=== PATIENT | male | born 1970 | race Hispanic/Latino ===

== ENCOUNTER 2019-09-24 | Emergency (ER) | payer SELFPAY ==
[~2019-09-24] MED LIST: AMOXICILLIN500 M2 PO; FLEXERIL5 M1 PO; METFORMIN500 MG PO; NAPROSYN500 MG PO; NAPROXEN DR500 MG PO; NO HOME MEDS; RANITIDINE150 M1 OR; TORADOL PO
[2019-09-24 20:22] LABS: HEMATOCRIT 36.8 % (39.0-50.0); HEMOGLOBIN 13.2 g/dl (14.0-18.0); IMMATURE GRANULOCYTES 0.2 % (0.0-5.0); MEAN CELL VOLUME 83.8 fL CALC (80.0-100.0); MEAN CORPUSCULAR HGB 30.1 pG CALC (26.0-32.0); MEAN CORPUSCULAR HGB CONC 35.9 g/L CALC (32.0-36.0); NEUT# 2.05 thou/uL (1.82-7.42); RED BLOOD COUNT 4.39 mill/uL (4.70-6.10); RED CELL DISTRI WIDTH 12.5 % (11.5-15.5)
[2019-09-24 20:23] LABS: URINE BILIRUBIN - DIPSTICK NEGATIVE (NEGATIVE); URINE BLOOD DIPSTICK NEGATIVE (NEGATIVE); URINE COLOR YELLOW; URINE GLUCOSE - DIPSTICK NEGATIVE (NEGATIVE); URINE KETONE NEGATIVE (NEGATIVE); URINE LEUK ESTERASE NEGATIVE (NEGATIVE); URINE NITRITE - DIPSTICK NEGATIVE (Negative); URINE PROTEIN - DIPSTICK NEGATIVE (NEG-TRACE)
[2019-09-24 20:33] LABS: ALBUMIN 4.9 g/dL (3.2-5.0); ALKALINE PHOSPHATASE 113 u/l (38-126); BUN 4 mg/dL (9-20); BUN/CREATININE RATIO 9 (12-20 (CALC)); CARBON DIOXIDE 24 mmol/l (22-30); CPK 205 u/l (52-200); CREATININE 0.4 mg/dL (0.7-1.3); ETHYL ALCOHOL 176 mg/dl (0-30); GFR > 60 ML/MIN (>=60 (CALC)); GFR FOR AFR.AMER. > 60 ML/MIN (>=60 (CALC)); MAGNESIUM 1.7 mg/dL (1.6-2.3); POTASSIUM 3.8 mmol/l (3.5-5.1); TOTAL PROTEIN 9.3 g/dL (6.3-8.2)
[2019-09-24 20:38] LABS: ANION GAP 21 (6-22 (CALC)); BILIRUBIN, TOTAL 1.8 mg/dL (0.0-1.4); CHLORIDE 86 mmol/l (95-108); SGOT/AST 209 u/l (17-59); SODIUM 127 mmol/l (137-146)
[2019-09-24 20:44] LABS: MYOGLOBIN 36 ng/mL (0 - 121)
[2019-09-24] MEDS ORDERED: LISINOPRIL10 MG PO (22:26)
== END 2019-09-24 23:27 | disposition home or self-care (01) | DRG 897 ==
PROVIDERS: Family Medicine
DX: F10.129 Alcohol abuse with intoxication, unspecified (principal); I10 Essential (primary) hypertension; E11.9 Type 2 diabetes mellitus without complications; Z79.84 Long term (current) use of oral hypoglycemic drugs
CPT/HCPCS: Q9967

== ENCOUNTER 2019-12-14 | Emergency (ER) | payer SELFPAY ==
[~2019-12-14] MED LIST changes: +LISINOPRIL10 MG PO
[2019-12-14] MEDS ORDERED: METFORMIN500 M2 PO (13:57)
[2019-12-14] MEDS ORDERED: AMOX/K CLAV875 M1 PO (14:06)
[2019-12-14] MEDS ORDERED: MUPIROCIN21 TOP (14:07)
== END 2019-12-14 15:15 | disposition home or self-care (01) | DRG 605 ==
DX: S91.352A Open bite, left foot, initial encounter (principal); I10 Essential (primary) hypertension; E11.9 Type 2 diabetes mellitus without complications; W54.0XXA Bitten by dog, initial encounter; Z79.84 Long term (current) use of oral hypoglycemic drugs

== ENCOUNTER 2020-01-06 | Emergency (ER) | payer SELFPAY ==
[~2020-01-06] MED LIST changes: +AMOX/K CLAV875 M1 PO; +METFORMIN500 M2 PO; +MUPIROCIN21 TOP
[2020-01-06] MEDS ORDERED: PENICILLN VK500 M1 PO (21:34)
== END 2020-01-06 21:42 | disposition home or self-care (01) | DRG 153 ==
DX: J02.0 Streptococcal pharyngitis (principal); I10 Essential (primary) hypertension; E11.9 Type 2 diabetes mellitus without complications; Z79.84 Long term (current) use of oral hypoglycemic drugs; Z20.828 Contact with and (suspected) exposure to other viral communicable diseases

== ENCOUNTER 2020-01-07 15:10 | Observation (INO) | payer SELFPAY ==
[~2020-01-07] VITALS: Ht 162.6 cm; Wt 61.9 kg
[~2020-01-07 15:10] MED LIST changes: +PENICILLN VK500 M1 PO
--- NOTE | 2020-01-07 15:10 | NUR ---
PT TO ROOM WITH A STEADY GAIT FOR BEDSIDE TRIAGE.
[2020-01-07 15:49] LABS: HEMATOCRIT 37.1 % (39.0-50.0); HEMOGLOBIN 12.7 g/dl (14.0-18.0); IMMATURE GRANULOCYTES 0.2 % (0.0-5.0); MEAN CELL VOLUME 84.3 fL CALC (80.0-100.0); MEAN CORPUSCULAR HGB 28.9 pG CALC (26.0-32.0); MEAN CORPUSCULAR HGB CONC 34.2 g/dL CAL (32.0-36.0); NEUT# 3.87 thou/uL (1.82-7.42); RED BLOOD COUNT 4.4 mill/uL (4.70-6.10); RED CELL DISTRI WIDTH 12.5 % (11.5-15.5)
[2020-01-07 16:03] LABS: ALBUMIN 5.2 g/dL (3.2-5.0); ALKALINE PHOSPHATASE 113 u/l (38-126); ANION GAP 19 (6-22 (CALC)); BUN 3 mg/dL (9-20); BUN/CREATININE RATIO 8 (12-20 (CALC)); CARBON DIOXIDE 24 mmol/l (22-30); CHLORIDE 86 mmol/l (95-108); CREATININE 0.4 mg/dL (0.7-1.3); GFR > 60 ML/MIN (>=60 (CALC)); GFR FOR AFR.AMER. > 60 ML/MIN (>=60 (CALC)); LIPASE 176 u/l (23-300); POTASSIUM 4.3 mmol/l (3.5-5.1); SGOT/AST 101 u/l (17-59); SODIUM 125 mmol/l (137-146); TOTAL PROTEIN 9.4 g/dL (6.3-8.2)
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
--- NOTE | 2020-01-07 17:05 | NUR ---
TRANSPORTED TO [facility] ON TELE IN NO DISTRESS
--- NOTE | 2020-01-07 17:20 | NUR ---
PT RESTING WITH EYES CLOSED IN NO DISTRESS. VSS.
[2020-01-07 17:28] LABS: URINE BILIRUBIN - DIPSTICK NEGATIVE (NEGATIVE); URINE BLOOD DIPSTICK NEGATIVE (NEGATIVE); URINE COLOR YELLOW; URINE GLUCOSE - DIPSTICK >=1000 mg/dL (NEGATIVE); URINE KETONE NEGATIVE (NEGATIVE); URINE LEUK ESTERASE NEGATIVE (NEGATIVE); URINE NITRITE - DIPSTICK NEGATIVE (Negative); URINE PROTEIN - DIPSTICK NEGATIVE (NEG-TRACE); URINE SPECIFIC GRAVITY <=1.005; URINE UROBILINOGEN - DIPSTICK 0.2 E.U./dL (0.2)
--- NOTE | 2020-01-07 18:15 | NUR ---
RECEIVED REPORT FROM BRIAN SCOTT WILL BE A BIT BEFORE BRINGING PT TO THE UNIT.
--- NOTE | 2020-01-07 18:21 | NUR ---
CALLED REPORT TO AGUSTINA PATEL
--- NOTE | 2020-01-07 18:22 | NUR ---
PT UPDATED ON POC AND ADMISSION. PT AGREEABLE. USED URINAL AT BEDSIDE, CLEAR YELLOW URINE.
[2020-01-07 18:55] VITALS: BP 159/82
--- NOTE | 2020-01-07 19:05 | NUR ---
PT TRANSPORTED TO [place] ON TELE IN NO DISTRESS VIA WC.
--- NOTE | 2020-01-07 21:11 | NUR ---
PT ARRIVED VIA ACCOMPANIED BY KAYLENE SCOTT @[id number]. PT LAYING IN BED. A&O X3. PT C/O OF SOME ABD PAIN AND NAUSEA BUT NO ACTIVE VOMITING EPISODES. EXPLAINED TO PT THAT MD WOULD BE NOTIFIED TO OBTAIN ORDERS FOR NAUSEA MEDICATION AND PAIN MEDICATION. ORIENTED PT TO ROOM. ASSESSMENT COMPLETED. DISCUSSED POC. CALL LIGHT IN REACH. CONTINUE TO MONITOR.
[2020-01-07 23:50] VITALS: BP 140/86
--- NOTE | 2020-01-08 00:12 | NUR ---
PT SLEEPING IN BED. RESP EVEN AND UNLABORED. CONTINUE TO MONITOR
[2020-01-08 04:15] VITALS: BP 129/79
--- NOTE | 2020-01-08 04:50 | NUR ---
PT SLEEPING IN BED, RESP EVEN AND UNLABORED. AWAKENED TO COMPLETE VENIPUNCTURE. PT TOLERATED WELL. CONTINUE TO MONITOR
[2020-01-08 05:39] LABS: ANION GAP 14 (6-22 (CALC)); BUN 9 mg/dL (9-20); BUN/CREATININE RATIO 17 (12-20 (CALC)); CARBON DIOXIDE 24 mmol/l (22-30); CHLORIDE 96 mmol/l (95-108); CREATININE 0.5 mg/dL (0.7-1.3); GFR > 60 ML/MIN (>=60 (CALC)); GFR FOR AFR.AMER. > 60 ML/MIN (>=60 (CALC)); POTASSIUM 4.2 mmol/l (3.5-5.1); SODIUM 130 mmol/l (137-146)
[2020-01-08 08:15] VITALS: BP 131/75
--- NOTE | 2020-01-08 08:15 | NUR ---
ASSESSMENT IS COMPLETED: IV SITE IS FREE FROM REDNESS OR EDEMA. HR IS REG,PULSES ARE STRONG ABD IS SOFT WITH ACTIVE BS. BREATH SOUNDS ARE CLEAR,BILATERALLY. TELE MONITOR IN PLACE.,
[2020-01-08 10:50] VITALS: BP 119/63
--- NOTE | 2020-01-08 12:00 | NUR ---
PT IS RELAXING IN BED WITH NO DISTRESS NOTED. IV SITE IS FREE FROM REDNESS ORE OLYA
--- NOTE | 2020-01-08 16:07 | NUR ---
IV SITE DISCONTINUED CATHETER INTACT. NO REDNESS OR EDEMA. DISCHARGE INSTRUCTIONS GIVEN AND VERBALIZED UNDERSTANDING. SUGAR GRINDER APPROVED FOR A CAB RIDE HOME/. Discharge instructions given. Patient verbalizes understanding of same. Discharged in stable condition via Wheelchair to Home with family. All belongings sent with pt.
--- NOTE | 2020-01-08 16:11 | NUR ---
I AND O OF 847 FOR IV FLUIDS
--- NOTE | 2020-01-18 09:30 | NUR ---
Notified of Covid results (Negative) by journal clerk Naseem Cordova. Patient states he is still not feeling well. Patient states he attempted to see PCP but they could not see him unitl 02/10/20 and that the [facility] stated they could not see him either. Advised patient to return to ED. Patient verbalized understanding.
== END 2020-01-08 16:08 | disposition home or self-care (01) | DRG 641 ==
LOC: ED 15:10 → ED-I 16:50 → ED 17:14 → ED-I 17:15 → MS2 17:42
PROVIDERS: Family Medicine; ADMIT Internal Medicine; ATTEND Internal Medicine
DX: E87.1 Hypo-osmolality and hyponatremia (principal); E11.9 Type 2 diabetes mellitus without complications; I10 Essential (primary) hypertension; K76.0 Fatty (change of) liver, not elsewhere classified; Z72.89 Other problems related to lifestyle; Z79.84 Long term (current) use of oral hypoglycemic drugs; Z20.828 Contact with and (suspected) exposure to other viral communicable diseases
CPT/HCPCS: G0378; Q9967

== ENCOUNTER 2020-01-18 | Emergency (ER) | payer SELFPAY ==
[2020-01-18 13:11] LABS: URINE BILIRUBIN - DIPSTICK NEGATIVE (NEGATIVE); URINE BLOOD DIPSTICK NEGATIVE (NEGATIVE); URINE CLARITY CLEAR; URINE COLOR YELLOW; URINE GLUCOSE - DIPSTICK >=1000 mg/dL (NEGATIVE); URINE KETONE NEGATIVE (NEGATIVE); URINE LEUK ESTERASE NEGATIVE (Negative); URINE NITRITE - DIPSTICK NEGATIVE (Negative); URINE PH 5.5 (4.5-8.0); URINE PROTEIN - DIPSTICK NEGATIVE (NEG-TRACE); URINE SPECIFIC GRAVITY <=1.005; URINE UROBILINOGEN - DIPSTICK 0.2 E.U./dL (0.2)
[2020-01-18 13:21] LABS: HEMATOCRIT 38.6 % (39.0-50.0); HEMOGLOBIN 12.9 g/dl (14.0-18.0); IMMATURE GRANULOCYTES 0.2 % (0.0-5.0); MEAN CELL VOLUME 85.2 fL CALC (80.0-100.0); MEAN CORPUSCULAR HGB 28.5 pG CALC (26.0-32.0); MEAN CORPUSCULAR HGB CONC 33.4 g/dL CAL (32.0-36.0); NEUT# 3.21 thou/uL (1.82-7.42); RED BLOOD COUNT 4.53 mill/uL (4.70-6.10); RED CELL DISTRI WIDTH 12.9 % (11.5-15.5)
[2020-01-18 13:39] LABS: ALBUMIN 4.5 g/dL (3.2-5.0); ALKALINE PHOSPHATASE 151 u/l (38-126); ANION GAP 17 (6-22 (CALC)); BUN 16 mg/dL (9-20); BUN/CREATININE RATIO 22 (12-20 (CALC)); C-REACTIVE PROTEIN < 0.5 mg/dL (0-0.9); CARBON DIOXIDE 21 mmol/l (22-30); CHLORIDE 101 mmol/l (95-108); CREATININE 0.7 mg/dL (0.7-1.3); GFR > 60 ML/MIN (>=60 (CALC)); GFR FOR AFR.AMER. > 60 ML/MIN (>=60 (CALC)); POTASSIUM 3.9 mmol/l (3.5-5.1); SGOT/AST 90 u/l (17-59); SODIUM 134 mmol/l (137-146); TOTAL PROTEIN 8.3 g/dL (6.3-8.2)
[2020-01-18 13:42] LABS: BILIRUBIN, TOTAL 0.7 mg/dL (0.0-1.4)
[2020-01-18] MEDS ORDERED: MOTRIN400 MG/TAB PO (14:01)
[2020-01-18] MEDS ORDERED: CYCLOBENZAPR5 MG PO (14:02)
[2020-01-18] MEDS ORDERED: KEFLEX500 M1 PO (15:41)
--- NOTE | 2020-01-20 09:19 | NUR ---
Rachel Sumner (endodontist) notified patient of Covidresults (Negative). Advised patient to follow up with PCP or return to ED for urgent needs.
== END 2020-01-18 16:20 | disposition home or self-care (01) | DRG 153 ==
DX: J02.0 Streptococcal pharyngitis (principal); E11.9 Type 2 diabetes mellitus without complications; I10 Essential (primary) hypertension; Z79.84 Long term (current) use of oral hypoglycemic drugs; Z20.828 Contact with and (suspected) exposure to other viral communicable diseases
CPT/HCPCS: J0561

== ENCOUNTER 2020-01-29 | Emergency (ER) | payer SELFPAY ==
[~2020-01-29] MED LIST changes: +CYCLOBENZAPR5 MG PO; +KEFLEX500 M1 PO; +MOTRIN400 MG/TAB PO
[2020-01-29 09:15] LABS: HEMATOCRIT 40.7 % (39.0-50.0); HEMOGLOBIN 13.8 g/dl (14.0-18.0); IMMATURE GRANULOCYTES 0.5 % (0.0-5.0); MEAN CELL VOLUME 82.4 fL CALC (80.0-100.0); MEAN CORPUSCULAR HGB 27.9 pG CALC (26.0-32.0); MEAN CORPUSCULAR HGB CONC 33.9 g/dL CAL (32.0-36.0); NEUT# 5.06 thou/uL (1.82-7.42); RED BLOOD COUNT 4.94 mill/uL (4.70-6.10); RED CELL DISTRI WIDTH 12.4 % (11.5-15.5)
[2020-01-29 09:25] LABS: AMYLASE 100 u/l (30-110); ETHYL ALCOHOL 0 mg/dl (0-30); LIPASE 272 u/l (23-300); MAGNESIUM 1.7 mg/dL (1.6-2.3)
[2020-01-29] MEDS ORDERED: HYDROCHLOROT12.5 MG PO (09:49)
[2020-01-29 09:55] LABS: ALBUMIN 4.7 g/dL (3.2-5.0); ALKALINE PHOSPHATASE 153 u/l (38-126); ANION GAP 19 (6-22 (CALC)); BILIRUBIN, TOTAL 0.7 mg/dL (0.0-1.4); BUN 26 mg/dL (9-20); BUN/CREATININE RATIO 31 (12-20 (CALC)); CARBON DIOXIDE 25 mmol/l (22-30); CHLORIDE 92 mmol/l (95-108); CREATININE 0.9 mg/dL (0.7-1.3); GFR > 60 ML/MIN (>=60 (CALC)); GFR FOR AFR.AMER. > 60 ML/MIN (>=60 (CALC)); POTASSIUM 4.4 mmol/l (3.5-5.1); SGOT/AST 60 u/l (17-59); SODIUM 131 mmol/l (137-146); TOTAL PROTEIN 8.6 g/dL (6.3-8.2)
[2020-01-29 09:55] LABS: URINE BILIRUBIN - DIPSTICK NEGATIVE (NEGATIVE); URINE BLOOD DIPSTICK NEGATIVE (NEGATIVE); URINE COLOR YELLOW; URINE GLUCOSE - DIPSTICK >=1000 mg/dL (NEGATIVE); URINE KETONE NEGATIVE (NEGATIVE); URINE LEUK ESTERASE NEGATIVE (NEGATIVE); URINE NITRITE - DIPSTICK NEGATIVE (Negative); URINE PH 5.5 (4.5-8.0); URINE PROTEIN - DIPSTICK NEGATIVE (NEG-TRACE); URINE SPECIFIC GRAVITY 1.015; URINE UROBILINOGEN - DIPSTICK 0.2 E.U./dL (0.2)
[2020-01-29 09:57] LABS: ACT PARTIAL THROMBO TIME 25.5 SECONDS (20.0-32.5); PROTHROMBIN TIME 10.6 SECONDS (9.0-12.5)
[2020-01-29 10:02] LABS: BARBITURATES NEGATIVE (NEGATIVE); COCAINE NEGATIVE (NEGATIVE); METHADONE NEGATIVE (NEGATIVE); OXCYCODONE NEGATIVE (NEGATIVE); TETRAHYDROCANNABIONOL NEGATIVE (NEGATIVE); TRICYLIC ANTIDEPRESSANTS NEGATIVE (NEGATIVE)
[2020-01-29] MEDS ORDERED: ACETAMIN500 M2 PO (10:05)
[2020-01-29] MEDS ORDERED: TRAMADOL HYDROC50 MG PO (12:00)
--- NOTE | 2020-02-01 11:33 | NUR ---
Notified patient of Covid results (Negative) via Naseem Wright (onion topper). Advised patient to follow up with PCP or retuen to ED with urgent issues. Patient verbalized understanding.
== END 2020-01-29 12:32 | disposition home or self-care (01) | DRG 639 ==
DX: E11.65 Type 2 diabetes mellitus with hyperglycemia (principal); E11.40 Type 2 diabetes mellitus with diabetic neuropathy, unspecified; I10 Essential (primary) hypertension; Z79.84 Long term (current) use of oral hypoglycemic drugs; Z91.14 Patient's other noncompliance with medication regimen; Z20.828 Contact with and (suspected) exposure to other viral communicable diseases

== ENCOUNTER 2020-04-18 17:30 | Emergency (ER) | payer SELFPAY ==
[~2020-04-18] VITALS: Ht 162.6 cm; Wt 58.0 kg
[~2020-04-18 17:30] MED LIST changes: +ACETAMIN500 M2 PO; +HYDROCHLOROT12.5 MG PO; +TRAMADOL HYDROC50 MG PO
[2020-04-18 19:14] LABS: IMMATURE GRANULOCYTES 0.3 % (0.0-5.0); MEAN CELL VOLUME 83.1 fL CALC (80.0-100.0); MEAN CORPUSCULAR HGB 27.1 pG CALC (26.0-32.0); MEAN CORPUSCULAR HGB CONC 32.6 g/dL CAL (32.0-36.0); NEUT# 4.24 thou/uL (1.82-7.42); RED BLOOD COUNT 4.09 mill/uL (4.70-6.10); RED CELL DISTRI WIDTH 13.7 % (11.5-15.5)
[2020-04-18 19:19] LABS: HEMOGLOBIN 11.1 g/dl (14.0-18.0)
[2020-04-18] MEDS ORDERED: GLIMEPIRIDE2 MG PO (19:25)
[2020-04-18 19:36] LABS: ALBUMIN 4.7 g/dL (3.2-5.0); ALKALINE PHOSPHATASE 110 u/l (38-126); ANION GAP 17 (6-22 (CALC)); BILIRUBIN, TOTAL 0.8 mg/dL (0.0-1.4); BUN 32 mg/dL (9-20); BUN/CREATININE RATIO 32 (12-20 (CALC)); CARBON DIOXIDE 22 mmol/l (22-30); CHLORIDE 99 mmol/l (95-108); GFR > 60 ML/MIN (>=60 (CALC)); GFR FOR AFR.AMER. > 60 ML/MIN (>=60 (CALC)); LIPASE 633 u/l (23-300); POTASSIUM 4.6 mmol/l (3.5-5.1); SGOT/AST 26 u/l (17-59); SODIUM 133 mmol/l (137-146)
[2020-04-18 21:52] LABS: URINE BILIRUBIN - DIPSTICK NEGATIVE (NEGATIVE); URINE BLOOD DIPSTICK NEGATIVE (NEGATIVE); URINE COLOR YELLOW; URINE GLUCOSE - DIPSTICK NEGATIVE (NEGATIVE); URINE KETONE NEGATIVE (NEGATIVE); URINE LEUK ESTERASE NEGATIVE (NEGATIVE); URINE NITRITE - DIPSTICK NEGATIVE (Negative); URINE PH 5.5 (4.5-8.0); URINE PROTEIN - DIPSTICK NEGATIVE (NEG-TRACE); URINE UROBILINOGEN - DIPSTICK 0.2 E.U./dL (0.2)
[2020-04-18] MEDS ORDERED: ONDANSETRON4 MG PO ×2 (22:41)
[2020-04-18] MEDS ORDERED: ULTRAM50 M1 PO (22:41)
[2020-04-18 23:54] VITALS: BP 113/74
== END 2020-04-19 00:21 | disposition home or self-care (01) | DRG 434 ==
LOC: ED 17:30
PROVIDERS: Family Medicine
DX: K70.30 Alcoholic cirrhosis of liver without ascites (principal); E11.65 Type 2 diabetes mellitus with hyperglycemia; F10.10 Alcohol abuse, uncomplicated; I10 Essential (primary) hypertension; Z79.84 Long term (current) use of oral hypoglycemic drugs; Z20.828 Contact with and (suspected) exposure to other viral communicable diseases
CPT/HCPCS: Q9967

== ENCOUNTER 2020-04-28 15:54 | Emergency (ER) | payer SELFPAY ==
[~2020-04-28] VITALS: Ht 162.6 cm; Wt 65.0 kg
[~2020-04-28 15:54] MED LIST changes: +GLIMEPIRIDE2 MG PO; +ONDANSETRON4 MG PO; +ULTRAM50 M1 PO
[2020-04-28] MEDS ORDERED: IBUPROFEN600 MG PO (17:29)
[2020-04-28 17:37] VITALS: BP 135/71
== END 2020-04-28 17:40 | disposition home or self-care (01) | DRG 605 ==
LOC: ED 15:54
DX: S60.222A Contusion of left hand, initial encounter (principal); I10 Essential (primary) hypertension; E11.9 Type 2 diabetes mellitus without complications; W01.0XXA Fall on same level from slipping, tripping and stumbling without subsequent striking against object, initial encounter; Y92.009 Unspecified place in unspecified non-institutional (private) residence as the place of occurrence of the external cause; Z79.84 Long term (current) use of oral hypoglycemic drugs

== ENCOUNTER 2020-07-28 09:06 | Emergency (ER) | payer SELFPAY ==
[~2020-07-28] VITALS: Ht 162.6 cm; Wt 61.3 kg
[~2020-07-28 09:06] MED LIST changes: +IBUPROFEN600 MG PO
[2020-07-28] MEDS ORDERED: LISINOP/HCTZ1 TAB PO (09:28)
[2020-07-28] MEDS ORDERED: FIORICET PO (09:30)
[2020-07-28] MEDS ORDERED: AMITRIPTYLIN10 MG PO (09:31)
[2020-07-28 09:44] LABS: HEMATOCRIT 33.2 % (39.0-50.0); HEMOGLOBIN 10.8 g/dl (14.0-18.0); IMMATURE GRANULOCYTES 0.5 % (0.0-5.0); MEAN CELL VOLUME 80.2 fL CALC (80.0-100.0); MEAN CORPUSCULAR HGB 26.1 pG CALC (26.0-32.0); MEAN CORPUSCULAR HGB CONC 32.5 g/dL CAL (32.0-36.0); NEUT# 2.67 thou/uL (1.82-7.42); RED BLOOD COUNT 4.14 mill/uL (4.70-6.10); RED CELL DISTRI WIDTH 14.9 % (11.5-15.5)
[2020-07-28 09:56] LABS: ALBUMIN 4.9 g/dL (3.2-5.0); ALKALINE PHOSPHATASE 124 u/l (38-126); AMYLASE 95 u/l (30-110); BILIRUBIN, TOTAL 0.9 mg/dL (0.0-1.4); BUN 7 mg/dL (9-20); BUN/CREATININE RATIO 13 (12-20 (CALC)); CARBON DIOXIDE 24 mmol/l (22-30); CHLORIDE 93 mmol/l (95-108); CREATININE 0.6 mg/dL (0.7-1.3); GFR > 60 ML/MIN (>=60 (CALC)); GFR FOR AFR.AMER. > 60 ML/MIN (>=60 (CALC)); SODIUM 132 mmol/l (137-146); TOTAL PROTEIN 8.3 g/dL (6.3-8.2)
[2020-07-28 09:58] LABS: ANION GAP 19 (6-22 (CALC)); POTASSIUM 4.2 mmol/l (3.5-5.1)
[2020-07-28 10:08] LABS: MYOGLOBIN 40 ng/mL (0 - 121)
[2020-07-28 10:09] LABS: SGOT/AST 51 u/l (17-59)
[2020-07-28 10:34] LABS: URINE BILIRUBIN - DIPSTICK NEGATIVE (NEGATIVE); URINE BLOOD DIPSTICK NEGATIVE (NEGATIVE); URINE COLOR YELLOW; URINE GLUCOSE - DIPSTICK >=1000 mg/dL (NEGATIVE); URINE KETONE NEGATIVE (NEGATIVE); URINE LEUK ESTERASE NEGATIVE (NEGATIVE); URINE NITRITE - DIPSTICK NEGATIVE (Negative); URINE PROTEIN - DIPSTICK NEGATIVE (NEG-TRACE); URINE SPECIFIC GRAVITY <=1.005; URINE UROBILINOGEN - DIPSTICK 0.2 E.U./dL (0.2)
[2020-07-28] MEDS ORDERED: PREVACID30 M3 PO (14:21)
[2020-07-28] MEDS ORDERED: ONDANSETRON4 MG PO (14:21)
[2020-07-28] MEDS ORDERED: NAPROXEN500 MG PO (14:38)
[2020-07-28 15:14] VITALS: BP 164/79
== END 2020-07-28 15:14 | disposition home or self-care (01) | DRG 392 ==
LOC: ED 09:06
PROVIDERS: Emergency Medicine
DX: R10.13 Epigastric pain (principal); R10.33 Periumbilical pain; E11.65 Type 2 diabetes mellitus with hyperglycemia; K70.30 Alcoholic cirrhosis of liver without ascites; F10.10 Alcohol abuse, uncomplicated; I10 Essential (primary) hypertension; Z79.84 Long term (current) use of oral hypoglycemic drugs; Z20.828 Contact with and (suspected) exposure to other viral communicable diseases
CPT/HCPCS: Q9967

== ENCOUNTER 2020-09-10 18:36 | Emergency (ER) | payer SELFPAY ==
[~2020-09-10] VITALS: Ht 154.9 cm; Wt 63.6 kg
[~2020-09-10 18:36] MED LIST changes: +AMITRIPTYLIN10 MG PO; +FIORICET PO; +LISINOP/HCTZ1 TAB PO; +NAPROXEN500 MG PO; +PREVACID30 M3 PO
[2020-09-10 19:23] LABS: HEMATOCRIT 34.3 % (39.0-50.0); HEMOGLOBIN 11.2 g/dl (14.0-18.0); IMMATURE GRANULOCYTES 0.2 % (0.0-5.0); MEAN CELL VOLUME 77.6 fL CALC (80.0-100.0); MEAN CORPUSCULAR HGB 25.3 pG CALC (26.0-32.0); MEAN CORPUSCULAR HGB CONC 32.7 g/dL CAL (32.0-36.0); NEUT# 2.27 thou/uL (1.82-7.42); RED BLOOD COUNT 4.42 mill/uL (4.70-6.10); RED CELL DISTRI WIDTH 13.8 % (11.5-15.5)
[2020-09-10 19:39] LABS: ALBUMIN 4.9 g/dL (3.2-5.0); ALKALINE PHOSPHATASE 104 u/l (38-126); ANION GAP 19 (6-22 (CALC)); BILIRUBIN, TOTAL 0.8 mg/dL (0.0-1.4); BUN 6 mg/dL (9-20); BUN/CREATININE RATIO 11 (12-20 (CALC)); CARBON DIOXIDE 23 mmol/l (22-30); CHLORIDE 92 mmol/l (95-108); CREATININE 0.5 mg/dL (0.7-1.3); GFR > 60 ML/MIN (>=60 (CALC)); GFR FOR AFR.AMER. > 60 ML/MIN (>=60 (CALC)); POTASSIUM 3.8 mmol/l (3.5-5.1); SGOT/AST 71 u/l (17-59); SODIUM 130 mmol/l (137-146); TOTAL PROTEIN 8.4 g/dL (6.3-8.2)
[2020-09-10 20:02] LABS: URINE BILIRUBIN - DIPSTICK NEGATIVE (NEGATIVE); URINE BLOOD DIPSTICK NEGATIVE (NEGATIVE); URINE COLOR YELLOW; URINE GLUCOSE - DIPSTICK >=1000 mg/dL (NEGATIVE); URINE KETONE NEGATIVE (NEGATIVE); URINE LEUK ESTERASE NEGATIVE (NEGATIVE); URINE NITRITE - DIPSTICK NEGATIVE (Negative); URINE PH 6.5 (4.5-8.0); URINE PROTEIN - DIPSTICK NEGATIVE (NEG-TRACE); URINE SPECIFIC GRAVITY <=1.005; URINE UROBILINOGEN - DIPSTICK 0.2 E.U./dL (0.2)
[2020-09-10] MEDS ORDERED: PHENERGAN25 MG/TAB PO (21:06)
[2020-09-10] MEDS ORDERED: VOLTAREN75 MG PO (21:06)
[2020-09-10 22:06] VITALS: BP 147/86
== END 2020-09-10 22:06 | disposition home or self-care (01) | DRG 866 ==
LOC: ED 18:36
PROVIDERS: Emergency Medicine
DX: B34.9 Viral infection, unspecified (principal); M25.50 Pain in unspecified joint; E11.65 Type 2 diabetes mellitus with hyperglycemia; I10 Essential (primary) hypertension; Z79.84 Long term (current) use of oral hypoglycemic drugs; Z20.828 Contact with and (suspected) exposure to other viral communicable diseases

== ENCOUNTER 2020-10-05 07:32 | Emergency (ER) | payer SELFPAY ==
[~2020-10-05] VITALS: Ht 154.9 cm; Wt 70.0 kg
[~2020-10-05 07:32] MED LIST changes: +PHENERGAN25 MG/TAB PO; +VOLTAREN75 MG PO
[2020-10-05 08:26] LABS: HEMATOCRIT 30.1 % (39.0-50.0); HEMOGLOBIN 10.1 g/dl (14.0-18.0); IMMATURE GRANULOCYTES 0.5 % (0.0-5.0); MEAN CORPUSCULAR HGB 25.8 pG CALC (26.0-32.0); MEAN CORPUSCULAR HGB CONC 33.6 g/dL CAL (32.0-36.0); NEUT# 2.31 thou/uL (1.82-7.42); RED BLOOD COUNT 3.91 mill/uL (4.70-6.10); RED CELL DISTRI WIDTH 14.6 % (11.5-15.5)
[2020-10-05 08:48] LABS: ALBUMIN 4.7 g/dL (3.2-5.0); ALKALINE PHOSPHATASE 105 u/l (38-126); ANION GAP 18 (6-22 (CALC)); BILIRUBIN, TOTAL 0.7 mg/dL (0.0-1.4); BUN 5 mg/dL (9-20); BUN/CREATININE RATIO 9 (12-20 (CALC)); CARBON DIOXIDE 26 mmol/l (22-30); CHLORIDE 91 mmol/l (95-108); CREATININE 0.5 mg/dL (0.7-1.3); GFR > 60 ML/MIN (>=60 (CALC)); GFR FOR AFR.AMER. > 60 ML/MIN (>=60 (CALC)); LIPASE 242 u/l (23-300); POTASSIUM 3.9 mmol/l (3.5-5.1); SGOT/AST 65 u/l (17-59); SODIUM 131 mmol/l (137-146); TOTAL PROTEIN 8.4 g/dL (6.3-8.2)
[2020-10-05 09:48] LABS: URINE BILIRUBIN - DIPSTICK NEGATIVE (NEGATIVE); URINE BLOOD DIPSTICK TRACE-LYSED (NEGATIVE); URINE COLOR YELLOW; URINE GLUCOSE - DIPSTICK >=1000 mg/dL (NEGATIVE); URINE KETONE NEGATIVE (NEGATIVE); URINE LEUK ESTERASE NEGATIVE (NEGATIVE); URINE NITRITE - DIPSTICK NEGATIVE (Negative); URINE PROTEIN - DIPSTICK NEGATIVE (NEG-TRACE); URINE SPECIFIC GRAVITY <=1.005; URINE UROBILINOGEN - DIPSTICK 0.2 E.U./dL (0.2)
[2020-10-05] MEDS ORDERED: ZOFRAN4 MG/TAB PO (10:43)
[2020-10-05 11:13] VITALS: BP 147/88
== END 2020-10-05 11:13 | disposition home or self-care (01) | DRG 639 ==
LOC: ED 07:32
PROVIDERS: Family Medicine
DX: E11.65 Type 2 diabetes mellitus with hyperglycemia (principal); I10 Essential (primary) hypertension; Z79.84 Long term (current) use of oral hypoglycemic drugs; Z20.822 Contact with and (suspected) exposure to COVID-19
CPT/HCPCS: Q9967

== ENCOUNTER 2020-11-09 20:06 | Emergency (ER) | payer SELFPAY ==
[~2020-11-09] VITALS: Ht 154.9 cm; Wt 60.0 kg
[~2020-11-09 20:06] MED LIST changes: +ZOFRAN4 MG/TAB PO
[2020-11-09 21:02] LABS: HEMATOCRIT 32.7 % (39.0-50.0); IMMATURE GRANULOCYTES 0.8 % (0.0-5.0); MEAN CORPUSCULAR HGB 25.6 pG CALC (26.0-32.0); MEAN CORPUSCULAR HGB CONC 33.6 g/dL CAL (32.0-36.0); NEUT# 3.76 thou/uL (1.82-7.42); RED BLOOD COUNT 4.3 mill/uL (4.70-6.10); RED CELL DISTRI WIDTH 15.7 % (11.5-15.5)
[2020-11-09 21:03] LABS: URINE BILIRUBIN - DIPSTICK NEGATIVE (NEGATIVE); URINE BLOOD DIPSTICK NEGATIVE (NEGATIVE); URINE COLOR YELLOW; URINE GLUCOSE - DIPSTICK >=1000 mg/dL (NEGATIVE); URINE KETONE NEGATIVE (NEGATIVE); URINE LEUK ESTERASE NEGATIVE (NEGATIVE); URINE NITRITE - DIPSTICK NEGATIVE (Negative); URINE PROTEIN - DIPSTICK NEGATIVE (NEG-TRACE); URINE SPECIFIC GRAVITY <=1.005; URINE UROBILINOGEN - DIPSTICK 0.2 E.U./dL (0.2)
[2020-11-09 21:17] VITALS: BP 109/85
[2020-11-09 21:23] LABS: ALBUMIN 4.7 g/dL (3.2-5.0); ALKALINE PHOSPHATASE 114 u/l (38-126); ANION GAP 20 (6-22 (CALC)); BILIRUBIN, TOTAL 0.6 mg/dL (0.0-1.4); BUN 4 mg/dL (9-20); BUN/CREATININE RATIO 9 (12-20 (CALC)); CARBON DIOXIDE 21 mmol/l (22-30); CHLORIDE 89 mmol/l (95-108); CREATININE 0.5 mg/dL (0.7-1.3); ETHYL ALCOHOL 213 mg/dl (0-30); GFR > 60 ML/MIN (>=60 (CALC)); GFR FOR AFR.AMER. > 60 ML/MIN (>=60 (CALC)); LIPASE 142 u/l (23-300); POTASSIUM 3.8 mmol/l (3.5-5.1); SGOT/AST 35 u/l (17-59); SODIUM 126 mmol/l (137-146); TOTAL PROTEIN 8.2 g/dL (6.3-8.2)
[2020-11-09 21:24] LABS: ACT PARTIAL THROMBO TIME 24.1 SECONDS (20.0-32.5); INTERNATIONAL NORMALIZED RATIO 1.1 RATIO (0.7-1.3); PROTHROMBIN TIME 10.5 SECONDS (9.0-12.5)
[2020-11-09] MEDS ORDERED: PROTONIX40 M2 PO (23:19)
[2020-11-09] MEDS ORDERED: ZOFRAN4 MG/TAB PO (23:19)
== END 2020-11-09 23:30 | disposition home or self-care (01) | DRG 74 ==
LOC: ED 20:06
DX: E11.42 Type 2 diabetes mellitus with diabetic polyneuropathy (principal); E87.1 Hypo-osmolality and hyponatremia; E11.65 Type 2 diabetes mellitus with hyperglycemia; F10.10 Alcohol abuse, uncomplicated; I10 Essential (primary) hypertension; K70.30 Alcoholic cirrhosis of liver without ascites; Z86.16 Personal history of COVID-19; Z79.84 Long term (current) use of oral hypoglycemic drugs; Z20.822 Contact with and (suspected) exposure to COVID-19

== ENCOUNTER 2020-11-19 17:29 | Emergency (ER) | payer SELFPAY ==
[~2020-11-19] VITALS: Ht 154.9 cm; Wt 65.0 kg
[~2020-11-19 17:29] MED LIST changes: +PROTONIX40 M2 PO
[2020-11-19 20:28] LABS: HEMATOCRIT 31.5 % (39.0-50.0); HEMOGLOBIN 10.1 g/dl (14.0-18.0); IMMATURE GRANULOCYTES 0.5 % (0.0-5.0); MEAN CELL VOLUME 78.4 fL CALC (80.0-100.0); MEAN CORPUSCULAR HGB 25.1 pG CALC (26.0-32.0); MEAN CORPUSCULAR HGB CONC 32.1 g/dL CAL (32.0-36.0); NEUT# 2.1 thou/uL (1.82-7.42); RED BLOOD COUNT 4.02 mill/uL (4.70-6.10); RED CELL DISTRI WIDTH 17.3 % (11.5-15.5); URINE BILIRUBIN - DIPSTICK NEGATIVE (NEGATIVE); URINE BLOOD DIPSTICK NEGATIVE (NEGATIVE); URINE COLOR YELLOW; URINE GLUCOSE - DIPSTICK >=1000 mg/dL (NEGATIVE); URINE KETONE NEGATIVE (NEGATIVE); URINE LEUK ESTERASE NEGATIVE (NEGATIVE); URINE NITRITE - DIPSTICK NEGATIVE (Negative); URINE PROTEIN - DIPSTICK NEGATIVE (NEG-TRACE); URINE SPECIFIC GRAVITY <=1.005; URINE UROBILINOGEN - DIPSTICK 0.2 E.U./dL (0.2)
[2020-11-19 21:04] LABS: ALBUMIN 4.8 g/dL (3.2-5.0); ALKALINE PHOSPHATASE 144 u/l (38-126); AMYLASE 84 u/l (30-110); ANION GAP 19 (6-22 (CALC)); BILIRUBIN, TOTAL 0.7 mg/dL (0.0-1.4); BUN 7 mg/dL (9-20); BUN/CREATININE RATIO 13 (12-20 (CALC)); CARBON DIOXIDE 25 mmol/l (22-30); CHLORIDE 95 mmol/l (95-108); CREATININE 0.5 mg/dL (0.7-1.3); ETHYL ALCOHOL 162 mg/dl (0-30); GFR > 60 ML/MIN (>=60 (CALC)); GFR FOR AFR.AMER. > 60 ML/MIN (>=60 (CALC)); LIPASE 183 u/l (23-300); SGOT/AST 39 u/l (17-59); TOTAL PROTEIN 8.1 g/dL (6.3-8.2)
[2020-11-19 21:05] LABS: SODIUM 135 mmol/l (137-146)
[2020-11-19] MEDS ORDERED: PEPCID20 MG PO (22:33)
[2020-11-19] MEDS ORDERED: METFORMIN HCL500 M1 PO (22:35)
[2020-11-19 23:00] VITALS: BP 178/87
[2020-11-20] MEDS ORDERED: ULTRAM50 MG PO (18:22)
== END 2020-11-19 23:00 | disposition home or self-care (01) | DRG 392 ==
LOC: ED 17:29
PROVIDERS: Family Medicine
DX: R10.13 Epigastric pain (principal); K70.30 Alcoholic cirrhosis of liver without ascites; F10.129 Alcohol abuse with intoxication, unspecified; E11.9 Type 2 diabetes mellitus without complications; I10 Essential (primary) hypertension; Z86.16 Personal history of COVID-19; Z79.84 Long term (current) use of oral hypoglycemic drugs
CPT/HCPCS: Q9967

== ENCOUNTER 2020-11-20 10:40 | Emergency (ER) | payer SELFPAY ==
[~2020-11-20] VITALS: Ht 154.9 cm; Wt 60.0 kg
[~2020-11-20 10:40] MED LIST changes: +METFORMIN HCL500 M1 PO; +PEPCID20 MG PO
[2020-11-20 11:50] LABS: HEMATOCRIT 33.8 % (39.0-50.0); HEMOGLOBIN 10.7 g/dl (14.0-18.0); IMMATURE GRANULOCYTES 0.3 % (0.0-5.0); MEAN CELL VOLUME 79.7 fL CALC (80.0-100.0); MEAN CORPUSCULAR HGB 25.2 pG CALC (26.0-32.0); MEAN CORPUSCULAR HGB CONC 31.7 g/dL CAL (32.0-36.0); NEUT# 1.94 thou/uL (1.82-7.42); RED BLOOD COUNT 4.24 mill/uL (4.70-6.10); RED CELL DISTRI WIDTH 17.5 % (11.5-15.5)
[2020-11-20 12:10] LABS: ALBUMIN 4.6 g/dL (3.2-5.0); ALKALINE PHOSPHATASE 120 u/l (38-126); ANION GAP 13 (6-22 (CALC)); BUN 9 mg/dL (9-20); BUN/CREATININE RATIO 16 (12-20 (CALC)); CARBON DIOXIDE 28 mmol/l (22-30); CHLORIDE 94 mmol/l (95-108); CREATININE 0.6 mg/dL (0.7-1.3); ETHYL ALCOHOL 0 mg/dl (0-30); GFR > 60 ML/MIN (>=60 (CALC)); GFR FOR AFR.AMER. > 60 ML/MIN (>=60 (CALC)); LIPASE 111 u/l (23-300); POTASSIUM 4.3 mmol/l (3.5-5.1); SGOT/AST 36 u/l (17-59); SODIUM 132 mmol/l (137-146); TOTAL PROTEIN 7.9 g/dL (6.3-8.2)
[2020-11-20 12:12] LABS: BILIRUBIN, TOTAL 1.2 mg/dL (0.0-1.4)
[2020-11-20] MEDS ORDERED: ULTRAM50 MG PO (18:22)
[2020-11-20 18:52] VITALS: BP 177/82
== END 2020-11-20 18:52 | disposition home or self-care (01) | DRG 552 ==
LOC: ED 10:40
DX: M54.2 Cervicalgia (principal); M54.6 Pain in thoracic spine; G89.29 Other chronic pain; E11.65 Type 2 diabetes mellitus with hyperglycemia; I10 Essential (primary) hypertension; Z79.84 Long term (current) use of oral hypoglycemic drugs; Z86.16 Personal history of COVID-19; Z20.822 Contact with and (suspected) exposure to COVID-19
CPT/HCPCS: Q9967

== ENCOUNTER 2021-05-03 16:07 | Emergency (ER) | payer SELFPAY ==
[~2021-05-03 16:07] MED LIST changes: +ULTRAM50 MG PO
[2021-05-03] MEDS ORDERED: HYDROCO/APAP1 TA9 PO (18:24)
[2021-05-03 18:27] VITALS: BP 112/70
== END 2021-05-03 19:05 | disposition home or self-care (01) | DRG 563 ==
LOC: ED 16:07
PROC: 2W3QX1Z Immobilization of Right Lower Leg using Splint (ICD-10-PCS; principal; 2021-05-03)
DX: S82.831A Other fracture of upper and lower end of right fibula, initial encounter for closed fracture (principal); S82.51XA Displaced fracture of medial malleolus of right tibia, initial encounter for closed fracture; I10 Essential (primary) hypertension; E11.9 Type 2 diabetes mellitus without complications; Z86.16 Personal history of COVID-19; V18.0XXA Pedal cycle driver injured in noncollision transport accident in nontraffic accident, initial encounter; Y93.55 Activity, bike riding; Z79.84 Long term (current) use of oral hypoglycemic drugs

== ENCOUNTER 2021-05-14 11:07 | Observation (INO) | payer SELFPAY ==
[~2021-05-14] VITALS: Ht 154.9 cm; Wt 60.0 kg
[~2021-05-14 11:07] MED LIST changes: +HYDROCO/APAP1 TA9 PO
--- NOTE | 2021-05-14 11:25 | NUR ---
PT TO ER BED 5 FOR TRIAGE AT THIS TIME.
[2021-05-14 11:53] LABS: HEMATOCRIT 34.5 % (39.0-50.0); HEMOGLOBIN 12.1 g/dl (14.0-18.0); IMMATURE GRANULOCYTES 0.3 % (0.0-5.0); MEAN CORPUSCULAR HGB 29.7 pG CALC (26.0-32.0); MEAN CORPUSCULAR HGB CONC 35.1 g/dL CAL (32.0-36.0); NEUT# 1.83 thou/uL (1.82-7.42); RED BLOOD COUNT 4.08 mill/uL (4.70-6.10); RED CELL DISTRI WIDTH 13.2 % (11.5-15.5)
[2021-05-14 11:58] LABS: MEAN CELL VOLUME 84.6 fL CALC (80.0-100.0)
[2021-05-14 12:05] LABS: ALBUMIN 4.3 g/dL (3.2-5.0); ALKALINE PHOSPHATASE 122 u/l (38-126); AMYLASE 82 u/l (30-110); ANION GAP 18 (6-22 (CALC)); BILIRUBIN, TOTAL 0.9 mg/dL (0.0-1.4); BUN 13 mg/dL (9-20); BUN/CREATININE RATIO 18 (12-20 (CALC)); CARBON DIOXIDE 23 mmol/l (22-30); CHLORIDE 97 mmol/l (95-108); CREATININE 0.7 mg/dL (0.7-1.3); ETHYL ALCOHOL 229 mg/dl (0-30); GFR > 60 ML/MIN (>=60 (CALC)); GFR FOR AFR.AMER. > 60 ML/MIN (>=60 (CALC)); LIPASE 140 u/l (23-300); POTASSIUM 3.8 mmol/l (3.5-5.1); SODIUM 134 mmol/l (137-146); TOTAL PROTEIN 7.9 g/dL (6.3-8.2)
[2021-05-14 12:06] LABS: SGOT/AST 214 u/l (17-59)
--- NOTE | 2021-05-14 12:15 | NUR ---
PT TO ER BED 14 FOR HIGHER LEVEL OF CARE AT THIS TIME. REPORT GIVEN TO JERAMY SCOTT AND CARE RELINQUISHED.
[2021-05-14 12:16] LABS: URINE BILIRUBIN - DIPSTICK NEGATIVE (NEGATIVE); URINE BLOOD DIPSTICK NEGATIVE (NEGATIVE); URINE COLOR YELLOW; URINE GLUCOSE - DIPSTICK NEGATIVE (NEGATIVE); URINE KETONE NEGATIVE (NEGATIVE); URINE LEUK ESTERASE NEGATIVE (NEGATIVE); URINE PROTEIN - DIPSTICK NEGATIVE (NEG-TRACE); URINE UROBILINOGEN - DIPSTICK 0.2 E.U./dL (0.2)
[2021-05-14 12:21] LABS: URINE NITRITE - DIPSTICK NEGATIVE (Negative)
--- NOTE | 2021-05-14 14:00 | NUR ---
LACTIC REDRAWN BY LAB
--- NOTE | 2021-05-14 15:52 | NUR ---
PATIENT MEDICATED PER ORDER, NO FURTHER NEEDS AT THIS TIME. LIGHTS DIMMED FOR PATIENT COMFORT.
--- NOTE | 2021-05-14 19:53 | NUR ---
PT C/O ARTHUR OLIVAREZ INFORMED OF PT REQUEST FOR MED FOR HEADACHE SPEECH IS CLESR NO FOCAL DEFICITS,GCS IS 15
--- NOTE | 2021-05-14 20:30 | NUR ---
PT WAS MEDICATED AND IS NOW ASLEEP APPEARS COMFORTABLE
--- NOTE | 2021-05-14 22:30 | NUR ---
PT IS ASLEEP W/P/D SKIN SR NO ECTOPY
--- NOTE | 2021-05-15 03:27 | NUR ---
ASLEEP W/D SKI N SR NO ECTOPY
--- NOTE | 2021-05-15 05:30 | NUR ---
RECIEVED REPORT FOR REST OF SHIFT. PT RESTING.
[2021-05-15 06:23] LABS: HEMATOCRIT 34.9 % (39.0-50.0); HEMOGLOBIN 12.3 g/dl (14.0-18.0); IMMATURE GRANULOCYTES 0.3 % (0.0-5.0); MEAN CELL VOLUME 84.5 fL CALC (80.0-100.0); MEAN CORPUSCULAR HGB 29.8 pG CALC (26.0-32.0); MEAN CORPUSCULAR HGB CONC 35.2 g/dL CAL (32.0-36.0); NEUT# 2.13 thou/uL (1.82-7.42); RED BLOOD COUNT 4.13 mill/uL (4.70-6.10); RED CELL DISTRI WIDTH 13.1 % (11.5-15.5)
[2021-05-15 06:24] LABS: INTERNATIONAL NORMALIZED RATIO 1.1 RATIO (0.7-1.3); PROTHROMBIN TIME 11.3 SECONDS (9.0-12.5)
[2021-05-15 06:31] LABS: ALKALINE PHOSPHATASE 142 u/l (38-126); BUN 6 mg/dL (9-20); BUN/CREATININE RATIO 9 (12-20 (CALC)); CHLORIDE 96 mmol/l (95-108); CREATININE 0.7 mg/dL (0.7-1.3); GFR > 60 ML/MIN (>=60 (CALC)); GFR FOR AFR.AMER. > 60 ML/MIN (>=60 (CALC)); POTASSIUM 3.7 mmol/l (3.5-5.1); SGOT/AST 153 u/l (17-59); SODIUM 132 mmol/l (137-146); TOTAL PROTEIN 7.3 g/dL (6.3-8.2)
[2021-05-15 06:54] LABS: ANION GAP 11 (6-22 (CALC)); BILIRUBIN, TOTAL 1.9 mg/dL (0.0-1.4); CARBON DIOXIDE 29 mmol/l (22-30)
--- NOTE | 2021-05-15 07:13 | NUR ---
PT RESTING. VSS. C/O HEADACHE. ANTIBIOTIC WAS HUNG. REPORT TO SONIA BANKS.
--- NOTE | 2021-05-15 07:45 | NUR ---
PT UP TO BATHROOM WITH STEADY GAIT. ITEMS WITHIN REACH. VITALS UPDATED. NO CONCERNS VOICED.
--- NOTE | 2021-05-15 11:00 | NUR ---
PT RESTING, NO COMPLAINTS AT THIS TIME, CALL LIGHT IN REACH. ASSESSMENT COMPLETED CHARTED
[2021-05-15] MEDS ORDERED: GLIPIZIDE5 M2 PO (12:04)
[2021-05-15] MEDS ORDERED: SIMVASTATIN20 M1 PO (12:04)
[2021-05-15] MEDS ORDERED: LEVOTHYROXIN50 MC1 PO (12:05)
[2021-05-15] MEDS ORDERED: BAC 50-325-40 M1 TAB PO (12:09)
--- NOTE | 2021-05-15 15:43 | NUR ---
PT RESTING IN BED WITH NO COMPLAINTS
--- NOTE | 2021-05-15 16:07 | NUR ---
GAVE REPORT TO NICCI SCOTT, PT TRANSPORTED VIA WHEELCHAIR TO FLOOR, ALL BELONGINGS WITH PT
[2021-05-15 16:28] VITALS: BP 140/76
--- NOTE | 2021-05-15 16:28 | NUR ---
PT IN ALERT AND ORIENTED. VITALS AND ASSESSMENT DONE. S1 AND S2 HEARD UPON ASCULTATION. BOWELS ACTIVE IN ALL 4 QUADRANTS. SKIN DRY AND WARM. CAST ON THE RIGHT FOOT. PT REPORTS NO PAIN. PT HAS A RIGHT LAC, IV PATENT AND HEALTHY. PT IS ON TELEMETRY. PT IS [place] SPEAKING. NO NEEDS WANTED AT THIS TIME. CALL LIGHT WITHIN REACH.
--- NOTE | 2021-05-15 18:35 | NUR ---
REPORT RECIVED FROM Damon RUEDA.
[2021-05-15 19:00] VITALS: BP 128/81
--- NOTE | 2021-05-15 20:15 | NUR ---
PATIENT ASSEMENT COMPLETED AT THIS TIME. ALERT AND ORIENED X3. CAPE VERDEAN PREFERED. CLEAR LUNG SOUNDS. NORMAL HEART SOUNDS. ACTIVE BOWEL SOUNDS IN ALL 4 QUADRANTS. LAST REPORTED BOWEL MOVEMENT TODAY 05/15/21. PATIENT HAS #20 IN THE LEFT AC IVF AT 100ML/HR. SOFT CAST NOTED ON RIGHT FOOT. DENIES ANY PAIN AT THIS TIME. PLAN OF CARE REVIEWED AND REORIENTED TO CALL LIGHT, REINFORCED TO CALL IF ASSITANCE IS NEEDED, NON COMPLAIANT WITH CALL LIGHT, BED ALARM IN PLACE.
[2021-05-16 04:00] VITALS: BP 130/83
--- NOTE | 2021-05-16 05:08 | NUR ---
PATIENT UP TO RESTROOM AT THIS TIME.
[2021-05-16 06:41] LABS: HEMATOCRIT 32.9 % (39.0-50.0); HEMOGLOBIN 11.2 g/dl (14.0-18.0); MEAN CELL VOLUME 86.6 fL CALC (80.0-100.0); MEAN CORPUSCULAR HGB 29.5 pG CALC (26.0-32.0); RED BLOOD COUNT 3.8 mill/uL (4.70-6.10); RED CELL DISTRI WIDTH 13.5 % (11.5-15.5)
[2021-05-16 06:58] LABS: ANION GAP 9 (6-22 (CALC)); BUN 5 mg/dL (9-20); BUN/CREATININE RATIO 6 (12-20 (CALC)); CARBON DIOXIDE 31 mmol/l (22-30); CHLORIDE 100 mmol/l (95-108); CREATININE 0.7 mg/dL (0.7-1.3); GFR > 60 ML/MIN (>=60 (CALC)); GFR FOR AFR.AMER. > 60 ML/MIN (>=60 (CALC)); MAGNESIUM 1.4 mg/dL (1.6-2.3); POTASSIUM 3.4 mmol/l (3.5-5.1); SODIUM 136 mmol/l (137-146)
[2021-05-16 07:20] VITALS: BP 124/83
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
--- NOTE | 2021-05-16 10:07 | NUR ---
DR. ALMANZA AND Monster YATES AT BEDSIDE DISCUSSING POC.
--- NOTE | 2021-05-16 12:00 | NUR ---
PT IN BED. NO DISTRESS NOTED. CALL LIGHT WITHIN REACH.
--- NOTE | 2021-05-16 13:06 | NUR ---
CALL PHARMACY REGARDING MISSING ZOSYN MEDICATION. KARAN TOLD ME TO USE ON OF THE ZOSYNS AVAILABLE AND SHE WILL REPLACE IT.
[2021-05-16] MEDS ORDERED: KEFLEX500 MG PO (13:33)
[2021-05-16 14:56] VITALS: BP 121/79
--- NOTE | 2021-05-16 17:40 | NUR ---
Discharge instructions given. Patient verbalizes understanding of same. Discharged in stable condition via Wheelchair to Home with staff. All belongings sent with pt.
== END 2021-05-16 18:00 | disposition home or self-care (01) | DRG 313 ==
LOC: ED 11:07 → ED-I 15:29 → ED 15:38 → ED-I 15:39 → MS2 05-15 15:30
PROVIDERS: Nurse Practitioner; ADMIT Hospitalist; ATTEND Hospitalist
DX: R07.9 Chest pain, unspecified (principal); E87.1 Hypo-osmolality and hyponatremia; M54.2 Cervicalgia; R51.9 Headache, unspecified; M54.9 Dorsalgia, unspecified; G89.29 Other chronic pain; R10.10 Upper abdominal pain, unspecified; R50.9 Fever, unspecified; E11.65 Type 2 diabetes mellitus with hyperglycemia; F10.129 Alcohol abuse with intoxication, unspecified; K70.30 Alcoholic cirrhosis of liver without ascites; I10 Essential (primary) hypertension; Y90.7 Blood alcohol level of 200-239 mg/100 ml; Z79.84 Long term (current) use of oral hypoglycemic drugs; Z86.16 Personal history of COVID-19; Z20.822 Contact with and (suspected) exposure to COVID-19
CPT/HCPCS: G0378; J3475; Q9967; S0164

== ENCOUNTER 2021-07-16 13:01 | Observation (INO) | payer SELFPAY ==
[~2021-07-16] VITALS: Ht 154.9 cm; Wt 60.8 kg
[~2021-07-16 13:01] MED LIST changes: +BAC 50-325-40 M1 TAB PO; +GLIPIZIDE5 M2 PO; +KEFLEX500 MG PO; +LEVOTHYROXIN50 MC1 PO; +SIMVASTATIN20 M1 PO
[2021-07-16 13:54] LABS: HEMATOCRIT 36.7 % (39.0-50.0); HEMOGLOBIN 12.5 g/dl (14.0-18.0); IMMATURE GRANULOCYTES 0.3 % (0.0-5.0); MEAN CORPUSCULAR HGB 27.1 pG CALC (26.0-32.0); MEAN CORPUSCULAR HGB CONC 34.1 g/dL CAL (32.0-36.0); NEUT# 1.66 thou/uL (1.82-7.42); RED BLOOD COUNT 4.62 mill/uL (4.70-6.10); RED CELL DISTRI WIDTH 14.1 % (11.5-15.5)
[2021-07-16 13:56] LABS: MEAN CELL VOLUME 79.4 fL CALC (80.0-100.0)
[2021-07-16 14:04] LABS: ALBUMIN 4.6 g/dL (3.2-5.0); ALKALINE PHOSPHATASE 145 u/l (38-126); AMYLASE 105 u/l (30-110); BUN 16 mg/dL (9-20); BUN/CREATININE RATIO 14 (12-20 (CALC)); CHLORIDE 95 mmol/l (95-108); CREATININE 1.1 mg/dL (0.7-1.3); ETHYL ALCOHOL 208 mg/dl (0-30); GFR > 60 ML/MIN (>=60 (CALC)); GFR FOR AFR.AMER. > 60 ML/MIN (>=60 (CALC)); LIPASE 181 u/l (23-300); POTASSIUM 3.6 mmol/l (3.5-5.1); SGOT/AST 150 u/l (17-59); SODIUM 134 mmol/l (137-146); TOTAL PROTEIN 8.6 g/dL (6.3-8.2)
[2021-07-16 14:05] LABS: ANION GAP 19 (6-22 (CALC)); BILIRUBIN, TOTAL 0.8 mg/dL (0.0-1.4); CARBON DIOXIDE 24 mmol/l (22-30)
[2021-07-16 14:20] LABS: URINE BILIRUBIN - DIPSTICK NEGATIVE (NEGATIVE); URINE BLOOD DIPSTICK NEGATIVE (NEGATIVE); URINE COLOR YELLOW; URINE GLUCOSE - DIPSTICK >=1000 mg/dL (NEGATIVE); URINE KETONE NEGATIVE (NEGATIVE); URINE LEUK ESTERASE NEGATIVE (NEGATIVE); URINE PROTEIN - DIPSTICK NEGATIVE (NEG-TRACE); URINE UROBILINOGEN - DIPSTICK 0.2 E.U./dL (0.2)
[2021-07-16 14:21] LABS: URINE NITRITE - DIPSTICK NEGATIVE (Negative)
[2021-07-16 21:40] VITALS: BP 192/100
[2021-07-16 22:10] VITALS: BP 157/92
[2021-07-17] VITALS (7 sets, daily range): BP systolic 139–178; BP diastolic 82–97
[2021-07-17 04:53] LABS: HEMATOCRIT 40.4 % (39.0-50.0); HEMOGLOBIN 13.6 g/dl (14.0-18.0); MEAN CELL VOLUME 79.5 fL CALC (80.0-100.0); MEAN CORPUSCULAR HGB 26.8 pG CALC (26.0-32.0); MEAN CORPUSCULAR HGB CONC 33.7 g/dL CAL (32.0-36.0); NEUT# 3.21 thou/uL (1.82-7.42); RED BLOOD COUNT 5.08 mill/uL (4.70-6.10); RED CELL DISTRI WIDTH 14.1 % (11.5-15.5)
[2021-07-17 05:03] LABS: ALBUMIN 4.6 g/dL (3.2-5.0); ALKALINE PHOSPHATASE 182 u/l (38-126); ANION GAP 15 (6-22 (CALC)); BUN 11 mg/dL (9-20); BUN/CREATININE RATIO 18 (12-20 (CALC)); CARBON DIOXIDE 24 mmol/l (22-30); CHLORIDE 99 mmol/l (95-108); CREATININE 0.6 mg/dL (0.7-1.3); GFR > 60 ML/MIN (>=60 (CALC)); GFR FOR AFR.AMER. > 60 ML/MIN (>=60 (CALC)); POTASSIUM 3.7 mmol/l (3.5-5.1); SGOT/AST 157 u/l (17-59); SODIUM 135 mmol/l (137-146); TOTAL PROTEIN 8.6 g/dL (6.3-8.2)
[2021-07-17 05:04] LABS: BILIRUBIN, TOTAL 1.5 mg/dL (0.0-1.4)
[2021-07-18] VITALS: BP 164/81
[2021-07-18 04:00] VITALS: BP 151/83
[2021-07-18 05:22] LABS: HEMATOCRIT 34.5 % (39.0-50.0); HEMOGLOBIN 11.7 g/dl (14.0-18.0); MEAN CELL VOLUME 79.7 fL CALC (80.0-100.0); MEAN CORPUSCULAR HGB CONC 33.9 g/dL CAL (32.0-36.0); NEUT# 2.87 thou/uL (1.82-7.42); RED BLOOD COUNT 4.33 mill/uL (4.70-6.10); RED CELL DISTRI WIDTH 14.2 % (11.5-15.5)
[2021-07-18 05:38] LABS: ALBUMIN 3.8 g/dL (3.2-5.0); ALKALINE PHOSPHATASE 156 u/l (38-126); ANION GAP 13 (6-22 (CALC)); BUN 13 mg/dL (9-20); BUN/CREATININE RATIO 18 (12-20 (CALC)); CARBON DIOXIDE 22 mmol/l (22-30); CHLORIDE 104 mmol/l (95-108); CREATININE 0.7 mg/dL (0.7-1.3); GFR > 60 ML/MIN (>=60 (CALC)); GFR FOR AFR.AMER. > 60 ML/MIN (>=60 (CALC)); POTASSIUM 3.5 mmol/l (3.5-5.1); SGOT/AST 69 u/l (17-59); SODIUM 136 mmol/l (137-146); TOTAL PROTEIN 7.2 g/dL (6.3-8.2)
[2021-07-18 08:33] VITALS: BP 140/86
[2021-07-18 10:50] VITALS: BP 142/86
== END 2021-07-18 14:45 | disposition home or self-care (01) | DRG 103 ==
LOC: ED 13:01 → ED-I 18:40 → ED 19:01 → MS2 19:02
PROVIDERS: Emergency Medicine; Nurse Practitioner; ADMIT Internal Medicine; ATTEND Internal Medicine
DX: G43.919 Migraine, unspecified, intractable, without status migrainosus (principal); F10.129 Alcohol abuse with intoxication, unspecified; I10 Essential (primary) hypertension; E11.9 Type 2 diabetes mellitus without complications; T50.916A Underdosing of multiple unspecified drugs, medicaments and biological substances, initial encounter; Z91.128 Patient's intentional underdosing of medication regimen for other reason; Z79.84 Long term (current) use of oral hypoglycemic drugs; Z86.16 Personal history of COVID-19; Z20.822 Contact with and (suspected) exposure to COVID-19
CPT/HCPCS: G0378; J1650; J2060

== ENCOUNTER 2021-09-05 07:54 | Emergency (ER) | payer SELFPAY ==
[~2021-09-05] VITALS: Ht 154.9 cm; Wt 65.9 kg
[2021-09-05] MEDS ORDERED: CYCLOBENZAPRINE10 MG PO (08:21)
[2021-09-05 09:18] LABS: HEMATOCRIT 39.3 % (39.0-50.0); IMMATURE GRANULOCYTES 0.2 % (0.0-5.0); MEAN CELL VOLUME 82.4 fL CALC (80.0-100.0); MEAN CORPUSCULAR HGB 27.3 pG CALC (26.0-32.0); MEAN CORPUSCULAR HGB CONC 33.1 g/dL CAL (32.0-36.0); NEUT# 2.95 thou/uL (1.82-7.42); RED BLOOD COUNT 4.77 mill/uL (4.70-6.10); RED CELL DISTRI WIDTH 14.3 % (11.5-15.5)
[2021-09-05 09:44] LABS: ALBUMIN 4.3 g/dL (3.2-5.0); ALKALINE PHOSPHATASE 152 u/l (38-126); BILIRUBIN, TOTAL 0.9 mg/dL (0.0-1.4); BUN 13 mg/dL (9-20); BUN/CREATININE RATIO 21 (12-20 (CALC)); CHLORIDE 94 mmol/l (95-108); CREATININE 0.6 mg/dL (0.7-1.3); GFR > 60 ML/MIN (>=60 (CALC)); GFR FOR AFR.AMER. > 60 ML/MIN (>=60 (CALC)); LIPASE 140 u/l (23-300); SGOT/AST 37 u/l (17-59); SODIUM 133 mmol/l (137-146); TOTAL PROTEIN 7.8 g/dL (6.3-8.2)
[2021-09-05 09:48] LABS: ANION GAP 15 (6-22 (CALC)); CARBON DIOXIDE 29 mmol/l (22-30); POTASSIUM 4.5 mmol/l (3.5-5.1)
[2021-09-05 13:21] VITALS: BP 188/89
== END 2021-09-05 13:36 | disposition home or self-care (01) | DRG 556 ==
LOC: ED 07:54
PROVIDERS: Family Medicine
DX: M25.512 Pain in left shoulder (principal); G89.29 Other chronic pain; M79.604 Pain in right leg; M25.511 Pain in right shoulder; R51.9 Headache, unspecified; I10 Essential (primary) hypertension; E11.9 Type 2 diabetes mellitus without complications; Z86.16 Personal history of COVID-19; Z79.84 Long term (current) use of oral hypoglycemic drugs

== ENCOUNTER 2022-02-21 18:19 | Emergency (ER) | payer SELFPAY ==
[~2022-02-21] VITALS: Ht 154.9 cm; Wt 61.0 kg
[~2022-02-21 18:19] MED LIST changes: +CYCLOBENZAPRINE10 MG PO; +METFORMIN HCL1000 MG PO; -METFORMIN500 M2 PO
[2022-02-21 18:26] VITALS: BP 158/94
[2022-02-21 18:30] VITALS: BP 156/91
[2022-02-21 19:00] VITALS: BP 132/78
[2022-02-21 19:08] LABS: HEMOGLOBIN 12.2 g/dl (14.0-18.0); IMMATURE GRANULOCYTES 0.3 % (0.0-5.0); MEAN CELL VOLUME 84.7 fL CALC (80.0-100.0); MEAN CORPUSCULAR HGB 31.6 pG CALC (26.0-32.0); MEAN CORPUSCULAR HGB CONC 37.3 g/dL CAL (32.0-36.0); NEUT# 3.46 thou/uL (1.82-7.42); RED BLOOD COUNT 3.86 mill/uL (4.70-6.10); RED CELL DISTRI WIDTH 13.3 % (11.5-15.5)
[2022-02-21 19:15] LABS: HEMATOCRIT 32.7 % (39.0-50.0)
[2022-02-21] MEDS ORDERED: LEVEMIR FL100 UNIT/M SC (19:19)
[2022-02-21 19:31] VITALS: BP 132/71
[2022-02-21 19:39] LABS: ALBUMIN 4.6 g/dL (3.2-5.0); ALKALINE PHOSPHATASE 99 u/l (38-126); AMYLASE 90 u/l (30-110); ANION GAP 19 (6-22 (CALC)); BILIRUBIN, TOTAL 0.6 mg/dL (0.0-1.4); BUN 11 mg/dL (9-20); BUN/CREATININE RATIO 16 (12-20 (CALC)); CHLORIDE 93 mmol/l (95-108); CREATININE 0.7 mg/dL (0.7-1.3); ETHYL ALCOHOL 298 mg/dl (0-30); GFR FOR AFR.AMER. > 60 ML/MIN (>=60 (CALC)); GFR OTHER RACES > 60 ML/MIN (>=60 (CALC)); LIPASE 144 u/l (23-300); POTASSIUM 3.6 mmol/l (3.5-5.1); SGOT/AST 37 u/l (17-59); SODIUM 130 mmol/l (137-146)
[2022-02-21 19:44] LABS: URINE BILIRUBIN - DIPSTICK NEGATIVE (NEGATIVE); URINE BLOOD DIPSTICK NEGATIVE (NEGATIVE); URINE COLOR YELLOW; URINE GLUCOSE - DIPSTICK >=1000 mg/dL (NEGATIVE); URINE KETONE NEGATIVE (NEGATIVE); URINE LEUK ESTERASE NEGATIVE (NEGATIVE); URINE PH 5.5 (4.5-8.0); URINE PROTEIN - DIPSTICK NEGATIVE (NEG-TRACE); URINE SPECIFIC GRAVITY 1.015; URINE UROBILINOGEN - DIPSTICK 0.2 E.U./dL (0.2)
[2022-02-21 19:46] LABS: CARBON DIOXIDE 22 mmol/l (22-30)
[2022-02-21 19:47] LABS: URINE NITRITE - DIPSTICK NEGATIVE (Negative)
[2022-02-21 20:03] LABS: ACT PARTIAL THROMBO TIME 19.8 SECONDS (20.0-32.5); INTERNATIONAL NORMALIZED RATIO 1.1 RATIO (0.7-1.3); PROTHROMBIN TIME 11.2 SECONDS (9.0-12.5)
[2022-02-21 20:31] VITALS: BP 143/78
[2022-02-21 21:00] VITALS: BP 145/71
[2022-02-21] MEDS ORDERED: PHENERGAN25 MG RE (21:09)
[2022-02-22] VITALS (14 sets, daily range): BP systolic 142–173; BP diastolic 84–100
== END 2022-02-21 21:35 | disposition home or self-care (01) | DRG 897 ==
LOC: ED 18:19
DX: F10.129 Alcohol abuse with intoxication, unspecified (principal); K70.30 Alcoholic cirrhosis of liver without ascites; I10 Essential (primary) hypertension; E11.9 Type 2 diabetes mellitus without complications; Z79.4 Long term (current) use of insulin; Z79.84 Long term (current) use of oral hypoglycemic drugs; Z86.16 Personal history of COVID-19; Z20.822 Contact with and (suspected) exposure to COVID-19
CPT/HCPCS: S0164

== ENCOUNTER 2022-02-22 08:35 | Observation (INO) | payer SELFPAY ==
[~2022-02-22] VITALS: Ht 154.9 cm; Wt 68.0 kg
[~2022-02-22 08:35] MED LIST changes: +LEVEMIR FL100 UNIT/M SC; +PHENERGAN25 MG RE
[2022-02-22 10:34] LABS: ALBUMIN 4.1 g/dL (3.2-5.0); ALKALINE PHOSPHATASE 105 u/l (38-126); AMYLASE 80 u/l (30-110); ANION GAP 19 (6-22 (CALC)); BILIRUBIN, TOTAL 0.4 mg/dL (0.0-1.4); BUN 8 mg/dL (9-20); BUN/CREATININE RATIO 13 (12-20 (CALC)); CARBON DIOXIDE 19 mmol/l (22-30); CHLORIDE 101 mmol/l (95-108); CREATININE 0.7 mg/dL (0.7-1.3); ETHYL ALCOHOL 88 mg/dl (0-30); GFR FOR AFR.AMER. > 60 ML/MIN (>=60 (CALC)); GFR OTHER RACES > 60 ML/MIN (>=60 (CALC)); LIPASE 194 u/l (23-300); POTASSIUM 3.9 mmol/l (3.5-5.1); SGOT/AST 32 u/l (17-59); SODIUM 136 mmol/l (137-146)
[2022-02-22 11:56] LABS: URINE BILIRUBIN - DIPSTICK NEGATIVE (NEGATIVE); URINE BLOOD DIPSTICK NEGATIVE (NEGATIVE); URINE COLOR YELLOW; URINE GLUCOSE - DIPSTICK >=1000 mg/dL (NEGATIVE); URINE KETONE NEGATIVE (NEGATIVE); URINE LEUK ESTERASE NEGATIVE (NEGATIVE); URINE PH 5.5 (4.5-8.0); URINE PROTEIN - DIPSTICK NEGATIVE (NEG-TRACE); URINE SPECIFIC GRAVITY 1.015; URINE UROBILINOGEN - DIPSTICK 0.2 E.U./dL (0.2)
[2022-02-22 11:57] LABS: HEMATOCRIT 33.4 % (39.0-50.0); HEMOGLOBIN 11.8 g/dl (14.0-18.0); MEAN CELL VOLUME 87.9 fL CALC (80.0-100.0); MEAN CORPUSCULAR HGB 31.1 pG CALC (26.0-32.0); MEAN CORPUSCULAR HGB CONC 35.3 g/dL CAL (32.0-36.0); NEUT# 2.34 thou/uL (1.82-7.42); RED BLOOD COUNT 3.8 mill/uL (4.70-6.10); RED CELL DISTRI WIDTH 13.7 % (11.5-15.5)
[2022-02-22 12:15] LABS: URINE NITRITE - DIPSTICK NEGATIVE (Negative)
[2022-02-22 15:07] VITALS: BP 182/79
[2022-02-22 15:19] VITALS: BP 182/79
[2022-02-22 19:00] VITALS: BP 155/83
[2022-02-22 19:10] VITALS: BP 155/83
[2022-02-23] VITALS (11 sets, daily range): BP systolic 150–169; BP diastolic 70–94
[2022-02-23 04:38] LABS: HEMATOCRIT 33.8 % (39.0-50.0); MEAN CELL VOLUME 88.3 fL CALC (80.0-100.0); MEAN CORPUSCULAR HGB 31.3 pG CALC (26.0-32.0); MEAN CORPUSCULAR HGB CONC 35.5 g/dL CAL (32.0-36.0); RED BLOOD COUNT 3.83 mill/uL (4.70-6.10); RED CELL DISTRI WIDTH 13.9 % (11.5-15.5)
[2022-02-23 04:42] LABS: ALBUMIN 3.8 g/dL (3.2-5.0); ALKALINE PHOSPHATASE 91 u/l (38-126); BUN 4 mg/dL (9-20); BUN/CREATININE RATIO 6 (12-20 (CALC)); CHLORIDE 101 mmol/l (95-108); CREATININE 0.6 mg/dL (0.7-1.3); GFR FOR AFR.AMER. > 60 ML/MIN (>=60 (CALC)); GFR OTHER RACES > 60 ML/MIN (>=60 (CALC)); MAGNESIUM 1.4 mg/dL (1.6-2.3); POTASSIUM 3.6 mmol/l (3.5-5.1); SGOT/AST 43 u/l (17-59); SODIUM 137 mmol/l (137-146); TOTAL PROTEIN 6.6 g/dL (6.3-8.2)
[2022-02-23 04:50] LABS: ANION GAP 14 (6-22 (CALC)); BILIRUBIN, TOTAL 1.2 mg/dL (0.0-1.4); CARBON DIOXIDE 26 mmol/l (22-30)
[2022-02-24] VITALS (8 sets, daily range): BP systolic 134–166; BP diastolic 70–89
[2022-02-24 05:53] LABS: HEMATOCRIT 34.5 % (39.0-50.0); MEAN CELL VOLUME 89.1 fL CALC (80.0-100.0); MEAN CORPUSCULAR HGB CONC 34.8 g/dL CAL (32.0-36.0); RED BLOOD COUNT 3.87 mill/uL (4.70-6.10); RED CELL DISTRI WIDTH 14.1 % (11.5-15.5)
[2022-02-24 06:09] LABS: ALBUMIN 3.8 g/dL (3.2-5.0); ALKALINE PHOSPHATASE 100 u/l (38-126); ANION GAP 11 (6-22 (CALC)); BILIRUBIN, TOTAL 1.1 mg/dL (0.0-1.4); BUN 2 mg/dL (9-20); BUN/CREATININE RATIO 3 (12-20 (CALC)); CARBON DIOXIDE 26 mmol/l (22-30); CHLORIDE 103 mmol/l (95-108); CREATININE 0.7 mg/dL (0.7-1.3); GFR FOR AFR.AMER. > 60 ML/MIN (>=60 (CALC)); GFR OTHER RACES > 60 ML/MIN (>=60 (CALC)); POTASSIUM 3.9 mmol/l (3.5-5.1); SGOT/AST 58 u/l (17-59); SODIUM 137 mmol/l (137-146); TOTAL PROTEIN 6.7 g/dL (6.3-8.2)
[2022-02-25 00:04] VITALS: BP 138/72
[2022-02-25 04:22] VITALS: BP 119/76
[2022-02-25 05:42] LABS: HEMOGLOBIN 11.8 g/dl (14.0-18.0); IMMATURE GRANULOCYTES 0.2 % (0.0-5.0); MEAN CELL VOLUME 89.7 fL CALC (80.0-100.0); MEAN CORPUSCULAR HGB 31.1 pG CALC (26.0-32.0); MEAN CORPUSCULAR HGB CONC 34.7 g/dL CAL (32.0-36.0); NEUT# 2.39 thou/uL (1.82-7.42); RED BLOOD COUNT 3.79 mill/uL (4.70-6.10)
[2022-02-25 05:51] LABS: ALBUMIN 3.8 g/dL (3.2-5.0); ALKALINE PHOSPHATASE 101 u/l (38-126); ANION GAP 10 (6-22 (CALC)); BILIRUBIN, TOTAL 0.8 mg/dL (0.0-1.4); BUN 3 mg/dL (9-20); BUN/CREATININE RATIO 5 (12-20 (CALC)); CARBON DIOXIDE 26 mmol/l (22-30); CHLORIDE 104 mmol/l (95-108); CREATININE 0.7 mg/dL (0.7-1.3); GFR FOR AFR.AMER. > 60 ML/MIN (>=60 (CALC)); GFR OTHER RACES > 60 ML/MIN (>=60 (CALC)); POTASSIUM 3.8 mmol/l (3.5-5.1); SGOT/AST 65 u/l (17-59); SODIUM 136 mmol/l (137-146); TOTAL PROTEIN 6.8 g/dL (6.3-8.2)
[2022-02-25 08:00] VITALS: BP 179/101
[2022-02-25 08:23] VITALS: BP 170/97
[2022-02-25] MEDS ORDERED: PROTONIX40 M2 PO (10:42)
[2022-02-25] MEDS ORDERED: KEFLEX500 MG PO (10:43)
[2022-02-25 11:18] VITALS: BP 179/101
== END 2022-02-25 12:36 | disposition home or self-care (01) | DRG 392 ==
LOC: ED 08:35 → ED-I 13:00 → ED 13:35 → MS2 13:36
PROVIDERS: Internal Medicine; ADMIT Internal Medicine; ATTEND Internal Medicine
DX: R10.33 Periumbilical pain (principal); F10.239 Alcohol dependence with withdrawal, unspecified; E87.2 Acidosis; E11.65 Type 2 diabetes mellitus with hyperglycemia; I10 Essential (primary) hypertension; D69.6 Thrombocytopenia, unspecified; R19.01 Right upper quadrant abdominal swelling, mass and lump; Y90.4 Blood alcohol level of 80-99 mg/100 ml; Z86.16 Personal history of COVID-19; Z79.84 Long term (current) use of oral hypoglycemic drugs; Z79.4 Long term (current) use of insulin; Z20.822 Contact with and (suspected) exposure to COVID-19
CPT/HCPCS: G0378; J2060; J3475; Q9967; S0164

== ENCOUNTER 2022-06-06 11:36 | Observation (INO) | payer MEDICAID ==
[2022-06-06] VITALS (15 sets, daily range): BP systolic 79–165; BP diastolic 58–92
[~2022-06-06] VITALS: Ht 154.9 cm; Wt 64.5 kg
[2022-06-06 13:00] LABS: URINE BILIRUBIN - DIPSTICK NEGATIVE (NEGATIVE); URINE BLOOD DIPSTICK NEGATIVE (NEGATIVE); URINE COLOR YELLOW; URINE GLUCOSE - DIPSTICK >=1000 mg/dL (NEGATIVE); URINE KETONE NEGATIVE (NEGATIVE); URINE LEUK ESTERASE NEGATIVE (NEGATIVE); URINE PH 5.5 (4.5-8.0); URINE PROTEIN - DIPSTICK NEGATIVE (NEG-TRACE); URINE UROBILINOGEN - DIPSTICK 0.2 E.U./dL (0.2)
[2022-06-06 13:01] LABS: ALKALINE PHOSPHATASE 124 u/l (38-126); BUN 20 mg/dL (9-20); BUN/CREATININE RATIO 26 (12-20 (CALC)); CARBON DIOXIDE 23 mmol/l (22-30); CREATININE 0.8 mg/dL (0.7-1.3); GFR FOR AFR.AMER. > 60 ML/MIN (>=60 (CALC)); GFR OTHER RACES > 60 ML/MIN (>=60 (CALC)); LIPASE 81 u/l (23-300); POTASSIUM 4.1 mmol/l (3.5-5.1); SGOT/AST 25 u/l (17-59); SODIUM 135 mmol/l (137-146); TOTAL PROTEIN 7.9 g/dL (6.3-8.2)
[2022-06-06 13:02] LABS: URINE NITRITE - DIPSTICK NEGATIVE (Negative)
[2022-06-06 13:07] LABS: ALBUMIN 4.9 g/dL (3.2-5.0); ANION GAP 17 (6-22 (CALC)); BILIRUBIN, TOTAL 0.4 mg/dL (0.0-1.4); CHLORIDE 99 mmol/l (95-108)
[2022-06-06 13:29] LABS: HEMOGLOBIN 11.8 g/dl (14.0-18.0); IMMATURE GRANULOCYTES 0.4 % (0.0-5.0); MEAN CELL VOLUME 86.2 fL CALC (80.0-100.0); MEAN CORPUSCULAR HGB 30.8 pG CALC (26.0-32.0); MEAN CORPUSCULAR HGB CONC 35.8 g/dL CAL (32.0-36.0); NEUT# 4.87 thou/uL (1.82-7.42); RED BLOOD COUNT 3.83 mill/uL (4.70-6.10)
[2022-06-07 04:27] VITALS: BP 123/76
[2022-06-07 06:18] VITALS: BP 129/70
[2022-06-07] MEDS ORDERED: PERCOCET 5/321 COMBO PO (09:58)
[2022-06-07 15:20] VITALS: BP 84/54
[2022-06-07 19:13] VITALS: BP 95/61
[2022-06-07 23:59] VITALS: BP 90/55
[2022-06-08 04:00] VITALS: BP 108/57
[2022-06-08 04:47] VITALS: BP 108/57
[2022-06-08 06:07] VITALS: BP 103/60
[2022-06-08] MEDS ORDERED: ONDANSETRON4 MG PO (08:54)
[2022-06-08 11:55] VITALS: BP 142/73
[2022-06-15] MEDS ORDERED: LISINOP/HCTZ1 TAB PO (09:30)
[2022-06-15] MEDS ORDERED: GLIPIZIDE10 M2 PO (09:30)
[2022-06-15] MEDS ORDERED: MELOXICAM15 MG PO (09:31)
[2022-06-15] MEDS ORDERED: PERCOCET 5/321 COMBO PO (10:23)
[2022-06-15] MEDS ORDERED: ONDANSETRON4 MG PO (10:23)
[2022-06-18] MEDS ORDERED: PERCOCET 5/321 COMBO PO (12:55)
== END 2022-06-08 13:19 | disposition home or self-care (01) ==
LOC: ED 11:36 → ED-I 13:14 → ED 15:29 → MS2 15:30
PROVIDERS: Family Medicine; ADMIT Surgery; ATTEND Surgery
DX: K35.30 Acute appendicitis with localized peritonitis, without perforation or gangrene (principal); I10 Essential (primary) hypertension; E11.9 Type 2 diabetes mellitus without complications; Z86.16 Personal history of COVID-19; Z79.84 Long term (current) use of oral hypoglycemic drugs; Z79.4 Long term (current) use of insulin; Z20.822 Contact with and (suspected) exposure to COVID-19
CPT/HCPCS: G0378; J0131; Q9967

== ENCOUNTER 2022-07-31 12:53 | Emergency (ER) | payer MEDICAID ==
[~2022-07-31] VITALS: Ht 154.9 cm; Wt 80.0 kg
[~2022-07-31 12:53] MED LIST changes: +GLIPIZIDE10 M2 PO; +MELOXICAM15 MG PO; +PERCOCET 5/321 COMBO PO
[2022-07-31 13:31] VITALS: BP 144/80
[2022-07-31 13:44] LABS: HEMATOCRIT 35.1 % (39.0-50.0); HEMOGLOBIN 12.3 g/dl (14.0-18.0); IMMATURE GRANULOCYTES 0.4 % (0.0-5.0); MEAN CELL VOLUME 86.5 fL CALC (80.0-100.0); MEAN CORPUSCULAR HGB 30.3 pG CALC (26.0-32.0); NEUT# 5.17 thou/uL (1.82-7.42); RED BLOOD COUNT 4.06 mill/uL (4.70-6.10); RED CELL DISTRI WIDTH 12.4 % (11.5-15.5)
[2022-07-31 14:23] LABS: ALKALINE PHOSPHATASE 148 u/l (38-126); ANION GAP 13 (6-22 (CALC)); BILIRUBIN, TOTAL 0.3 mg/dL (0.0-1.4); BUN 21 mg/dL (9-20); BUN/CREATININE RATIO 22 (12-20 (CALC)); CARBON DIOXIDE 25 mmol/l (22-30); CHLORIDE 102 mmol/l (95-108); CPK 81 u/l (52-200); CREATININE 0.9 mg/dL (0.7-1.3); GFR FOR AFR.AMER. > 60 ML/MIN (>=60 (CALC)); GFR OTHER RACES > 60 ML/MIN (>=60 (CALC)); LIPASE 98 u/l (23-300); POTASSIUM 4.5 mmol/l (3.5-5.1); SGOT/AST 47 u/l (17-59); SODIUM 136 mmol/l (137-146); TOTAL PROTEIN 8.6 g/dL (6.3-8.2)
[2022-07-31 14:29] LABS: URINE BILIRUBIN - DIPSTICK NEGATIVE (NEGATIVE); URINE BLOOD DIPSTICK NEGATIVE (NEGATIVE); URINE COLOR YELLOW; URINE GLUCOSE - DIPSTICK NEGATIVE (NEGATIVE); URINE KETONE TRACE mg/dL (NEGATIVE); URINE LEUK ESTERASE NEGATIVE (NEGATIVE); URINE PH 5.5 (4.5-8.0); URINE PROTEIN - DIPSTICK NEGATIVE (NEG-TRACE); URINE SPECIFIC GRAVITY 1.025; URINE UROBILINOGEN - DIPSTICK 0.2 E.U./dL (0.2)
[2022-07-31 14:30] VITALS: BP 109/74
[2022-07-31 14:31] LABS: URINE NITRITE - DIPSTICK NEGATIVE (Negative)
[2022-07-31 16:18] VITALS: BP 109/74
== END 2022-07-31 16:44 | disposition home or self-care (01) ==
LOC: ED 12:53
PROVIDERS: Internal Medicine
DX: R10.9 Unspecified abdominal pain (principal); N50.812 Left testicular pain; N50.811 Right testicular pain; E11.9 Type 2 diabetes mellitus without complications; I10 Essential (primary) hypertension; Z86.16 Personal history of COVID-19; Z79.84 Long term (current) use of oral hypoglycemic drugs
CPT/HCPCS: Q9967

== ENCOUNTER 2024-05-20 19:19 | Emergency (ER) | payer SELFPAY ==
[~2024-05-20] VITALS: Ht 154.9 cm; Wt 68.0 kg
[~2024-05-20 19:19] MED LIST changes: +BACTRIM DS1 TAB PO
[2024-05-20] MEDS ORDERED: ONDANSETRON HCl 4 MG/2 ML SDV IV ONE (19:30)
[2024-05-20] MEDS ORDERED: SODIUM CHLORIDE 0.9% 1,000 ML IV ONE ×2 (19:30→22:35)
[2024-05-20] MEDS ORDERED: ASPIRIN 81 MG/TAB PO ONE (19:30)
[2024-05-20 19:46] LABS: BASO% 0.9 % (0-3); EOS% 2.1 % (0-8); HEMATOCRIT 37.6 % (39.0-50.0); HEMOGLOBIN 13.1 g/dl (14.0-18.0); IMMATURE GRANULOCYTES 0.9 % (0.0-5.0); MEAN CELL VOLUME 85.6 fL CALC (80.0-100.0); MEAN CORPUSCULAR HGB 29.8 pG CALC (26.0-32.0); MEAN CORPUSCULAR HGB CONC 34.8 g/dL CAL (32.0-36.0); MONO% 6.9 % (2-13); NEUT# 2.48 thou/uL (1.82-7.42); NEUT% 57.2 % (42-76); RED BLOOD COUNT 4.39 mill/uL (4.70-6.10); RED CELL DISTRI WIDTH 13.8 % (11.5-15.5)
[2024-05-20 20:00] LABS: ALBUMIN 4.9 g/dL (3.2-5.0); ALKALINE PHOSPHATASE 144 u/l (38-126); ANION GAP 17 (6-22 (CALC)); BUN 11 mg/dL (9-20); BUN/CREATININE RATIO 16 (12-20 (CALC)); CARBON DIOXIDE 23 mmol/l (22-30); CHLORIDE 94 mmol/l (95-108); CPK 153 u/l (55-170); CREATININE 0.7 mg/dL (0.7-1.3); ESTIMATED GFR 109 ML/MIN (>=90 (CALC)); LIPASE 151 u/l (23-300); POTASSIUM 4.1 mmol/l (3.5-5.1); SODIUM 130 mmol/l (137-146); TOTAL PROTEIN 8.2 g/dL (6.3-8.2)
[2024-05-20 20:06] LABS: BILIRUBIN, TOTAL 0.7 mg/dL (0.2-1.3); SGOT/AST 153 u/l (17-59)
[2024-05-20] MEDS ORDERED: INSULIN REGULAR (HUMAN) 100 UNIT/ML INJ IV ONE (22:35)
[2024-05-20] MEDS ORDERED: DEXAMETHASONE 2 MG/TAB TAB PO ONE (22:35)
[2024-05-20] MEDS ORDERED: KETOROLAC TROMETHAMINE 30 MG/ML SDV IV ONE (22:35)
[2024-05-20 23:41] VITALS: BP 178/90
[2024-05-20 23:46] VITALS: BP 188/95
[2024-05-20] MEDS ORDERED: LEVOTHYROXIN75 MC1 PO (23:53)
[2024-05-20] MEDS ORDERED: FLEXERIL5 M1 PO (23:55)
[2024-05-20] MEDS ORDERED: AMOX/K CLAV875 M1 PO (23:58)
[2024-05-21] VITALS (8 sets, daily range): BP systolic 161–191; BP diastolic 93–107
== END 2024-05-21 01:42 | disposition home or self-care (01) | DRG 153 ==
LOC: ED 19:19
PROVIDERS: Internal Medicine; Nurse Practitioner
DX: J02.0 Streptococcal pharyngitis (principal); E87.1 Hypo-osmolality and hyponatremia; R74.8 Abnormal levels of other serum enzymes; R07.9 Chest pain, unspecified; I10 Essential (primary) hypertension; E11.9 Type 2 diabetes mellitus without complications; E03.9 Hypothyroidism, unspecified; Z86.16 Personal history of COVID-19; Z79.84 Long term (current) use of oral hypoglycemic drugs; Z20.822 Contact with and (suspected) exposure to COVID-19

== ENCOUNTER 2024-10-28 18:25 | Emergency (ER) | payer SELFPAY ==
[~2024-10-28] VITALS: Ht 154.9 cm; Wt 68.0 kg
[~2024-10-28 18:25] MED LIST changes: +IMODIUM A-D2 M3 PO; +LEVOTHYROXIN75 MC1 PO
[2024-10-28 18:36] VITALS: BP 151/86
[2024-10-28 18:45] VITALS: BP 168/88
[2024-10-28] MEDS ORDERED: MORPHINE SULFATE 4 MG/ML VIAL IV ONE (18:50)
[2024-10-28] MEDS ORDERED: ORPHENADRINE CITRATE 30 MG/ML AMP IV ONE (18:50)
[2024-10-28 19:00] VITALS: BP 133/77
[2024-10-28 19:13] LABS: BASO% 0.6 % (0-3); EOS% 2.5 % (0-8); HEMOGLOBIN 14.5 g/dl (14.0-18.0); IMMATURE GRANULOCYTES 0.4 % (0.0-5.0); LYMPH% 15.5 % (15-41); MEAN CELL VOLUME 85.4 fL CALC (80.0-100.0); MEAN CORPUSCULAR HGB 28.7 pG CALC (26.0-32.0); MEAN CORPUSCULAR HGB CONC 33.6 g/dL CAL (32.0-36.0); MONO% 5.4 % (2-13); NEUT# 7.07 thou/uL (1.82-7.42); NEUT% 75.6 % (42-76); RED BLOOD COUNT 5.06 mill/uL (4.70-6.10); RED CELL DISTRI WIDTH 11.6 % (11.5-15.5)
[2024-10-28 19:14] LABS: HEMATOCRIT 43.2 % (39.0-50.0)
[2024-10-28 19:35] VITALS: BP 162/95
[2024-10-28 20:00] VITALS: BP 150/90
[2024-10-28 20:13] LABS: ALBUMIN 4.4 g/dL (3.2-5.0); BILIRUBIN, TOTAL 0.7 mg/dL (0.2-1.3); CREATININE 0.7 mg/dL (0.7-1.3); POTASSIUM 4.4 mmol/l (3.5-5.1); TOTAL PROTEIN 7.3 g/dL (6.3-8.2)
[2024-10-28 23:41] VITALS: BP 147/87
[2024-10-29] VITALS: BP 129/77
[2024-10-29 00:27] VITALS: BP 172/101
[2024-10-29] MEDS ORDERED: NAPROXEN500 MG PO (00:35)
== END 2024-10-29 00:49 | disposition home or self-care (01) | DRG 552 ==
LOC: ED 18:25
PROVIDERS: Nurse Practitioner
DX: M54.2 Cervicalgia (principal); R07.9 Chest pain, unspecified; E87.1 Hypo-osmolality and hyponatremia; R11.2 Nausea with vomiting, unspecified; R79.89 Other specified abnormal findings of blood chemistry; E11.9 Type 2 diabetes mellitus without complications; I10 Essential (primary) hypertension; Z86.16 Personal history of COVID-19; Z79.84 Long term (current) use of oral hypoglycemic drugs; Z20.822 Contact with and (suspected) exposure to COVID-19
CPT/HCPCS: J2360